=== PATIENT | male | born 1940 | race Caucasian/White ===

== ENCOUNTER 2017-03-12 19:31 | Emergency (ER) | payer OTHER, MEDICARE ==
[~2017-03-12] VITALS: Ht 180.3 cm; Wt 81.4 kg
[2017-03-12 21:18] VITALS: BP 158/100
== END 2017-03-12 21:19 | disposition home or self-care (01) ==
LOC: EME 19:31
PROC: 0PSVXZZ Reposition Left Finger Phalanx, External Approach (ICD-10-PCS; principal; 2017-03-12)
DX: S63.285A Dislocation of proximal interphalangeal joint of left ring finger, initial encounter (principal); S62.615A Displaced fracture of proximal phalanx of left ring finger, initial encounter for closed fracture; W01.0XXA Fall on same level from slipping, tripping and stumbling without subsequent striking against object, initial encounter; Z87.891 Personal history of nicotine dependence
CPT/HCPCS: 73140; 99281; 99284; S0020

== ENCOUNTER 2017-03-13 14:24 | Emergency (ER) | payer OTHER, MEDICARE ==
[~2017-03-13] VITALS: Ht 180.3 cm; Wt 81.4 kg
[2017-03-13 17:14] VITALS: BP 125/75
== END 2017-03-13 17:15 | disposition home or self-care (01) ==
LOC: EME 14:24
DX: S62.615D Displaced fracture of proximal phalanx of left ring finger, subsequent encounter for fracture with routine healing (principal); W19.XXXD Unspecified fall, subsequent encounter; Z85.46 Personal history of malignant neoplasm of prostate; Z90.79 Acquired absence of other genital organ(s); Z87.891 Personal history of nicotine dependence
CPT/HCPCS: 99281; 99283